=== PATIENT | female | born 1985 | race American Indian/Alaskan Native ===

== ENCOUNTER 2019-12-15 18:13 | Emergency (ER) | payer SELFPAY ==
[2019-12-15] MEDS ORDERED: SODIUM CHLORIDE 0.9% 500 ML 500 ML IV ONE (20:50)
[2019-12-15] MEDS ORDERED: ACETAMINOPHEN 500 MG TAB PO STA (20:50)
[2019-12-15 21:27] LABS: Basophils % (Auto) 0.3 % (0.0-1.8); Eosinophils % (Auto) 0.1 % (0.0-4.3); Hematocrit 29.2 % (30.3-42.9); Hemoglobin 9.6 gm/dl (10.1-14.3); Lymphocytes # (Auto) 1.8 K/mm3 (1.2-5.4); Lymphocytes % (Auto) 11.4 % (13.4-35.0); Mean Corpuscular HGB Conc 33 % (30-34); Monocytes % (Auto) 6.4 % (0.0-7.3); Platelet Count 463 K/mm3 (140-440); Red Blood Count 4.53 M/mm3 (3.65-5.03)
[2019-12-15 21:29] LABS: Alanine Aminotransferase 16 units/L (7-56); Albumin 4.8 g/dL (3.9-5); Blood Urea Nitrogen 14 mg/dL (7-17); Calcium 9.8 mg/dL (8.4-10.2); Hemolysis Index 1
[2019-12-15 21:31] LABS: BUN/Creatinine Ratio 20
[2019-12-15 21:37] LABS: INR 1.04 (0.87-1.13)
[2019-12-15 21:38] LABS: Mean Corpuscular Volume 65 fl (79-97)
[2019-12-15 21:50] LABS: Bilirubin,Urine SM (Negative); Blood,Urine LG (Negative); Color,Urine Amber (Yellow); Mucus,Urine 3+ /HPF
[2019-12-15 21:58] LABS: Ictotest,Urine Negative (Negative)
--- NOTE | 2019-12-15 22:34 | XRay Report ---
CHEST 2 VIEWS INDICATION / CLINICAL INFORMATION: MAIN. COMPARISON: None available. FINDINGS: SUPPORT DEVICES: None. HEART / MEDIASTINUM: No significant abnormality. LUNGS / PLEURA: No significant pulmonary or pleural abnormality. No pneumothorax. ADDITIONAL FINDINGS: No significant additional findings. IMPRESSION: 1. No acute findings. Signer Name: John Walker MD Signed: 12/15/2019 10:29 PM Workstation Name: [id number]
[2019-12-16 02:50] VITALS: BP 114/81
[2019-12-16] MEDS ORDERED: SODIUM CHLORIDE 0.9% 1000 ML 1,000 ML IV ONE (03:06)
[2019-12-16] MEDS ORDERED: cefTRIAXone/NS 1 GM/50 ML 1 GM/50 ML BAG IV ONE (03:06)
--- NOTE | 2019-12-16 04:21 | Emergency Department Report ---
Abscess Boil HPI - HPI Chief Complaint: Skin/Abscess/Foreign Body Stated Complaint: ANXIETY ATTACK Time Seen by Provider: 12/16/19 03:03 Duration: 3 Days Location: Upper Extremity History: Yes Pain, Yes Purulent Drainage, Yes Previous History, No Fever, No Numbness, No Foreign Body, No Insect Bite HPI: Patient 34-year-old -Citizen Of [place] female who presents for right axillary abscess for the past 3 days. . Patient advises that it ruptured while in triage. Stated moderate amount of purulent drainage. Patient does endorse history of same generally treated with p.o. antibiotics. There has been no fevers no chills there is no exacerbating or relieving factor. Home Medications: Previous Rx's Medication Instructions Recorded Last Taken Type cephALEXin [Keflex] 28 mg PO Q8HR #30 cap 12/16/19 Unknown Rx traMADoL [Ultram] 50 mg PO Q6HR PRN 7 Days #28 tablet 12/16/19 Unknown Rx Allergies/Adverse Reactions: Allergies Allergy/AdvReac Type Severity Reaction Status Date / Time No Known Allergies Allergy Unverified 12/15/19 20:48 ED Review of Systems ROS: Stated complaint: ANXIETY ATTACK Other details as noted in HPI Constitutional: denies: chills, fever Eyes: denies: eye pain, eye discharge, vision change ENT: denies: ear pain, throat pain Respiratory: denies: cough, shortness of breath, wheezing Cardiovascular: denies: chest pain, palpitations Endocrine: no symptoms reported Gastrointestinal: denies: abdominal pain, nausea, diarrhea Genitourinary: denies: urgency, dysuria, discharge Musculoskeletal: denies: back pain, joint swelling, arthralgia Skin: lesions, change in color, change in hair/nails, pruritus Neurological: headache Psychiatric: denies: anxiety, depression Hematological/Lymphatic: denies: easy bleeding, easy bruising ED Past Medical Hx - Past Medical History Previous Medical History?: Yes Hx Psychiatric Treatment: Yes (Anxiety) - Surgical History Past Surgical History?: Yes Additional Surgical History: X 2 - Social History Smoking Status: Never Smoker Substance Use Type: None - Medications Home Medications: Home Medications Medication Instructions Recorded Confirmed Last Taken Type cephALEXin [Keflex] 28 mg PO Q8HR #30 cap 12/16/19 Unknown Rx traMADoL [Ultram] 50 mg PO Q6HR PRN 7 Days #28 tablet 12/16/19 Unknown Rx ED Abscess Boil Physical Exam - Exam General: Vital signs noted. No distress. Alert and acting appropriately. Size: 2 cm Exam: Yes Surrounding Cellulites/Erythema, Yes Normal Neurologic Exam, Yes Normal Circulation, No Tenderness, No Fluctuance, No Lymphangitis, No Crepitation, No Heart Murmur Exam: right axillary ascess 1x3 cm, purulent drainage , moderte erythema, painful touch. I & D Note - I & D Note I & D Note: pt declines i&D ED Course Vital Signs 12/15/19 12/16/19 20:40 02:49 Temperature 100.2 F H 98.8 F Pulse Rate 128 H 92 H Respiratory 22 18 Rate Blood Pressure 109/83 Blood Pressure 114/81 [Left] O2 Sat by Pulse 100 99 Oximetry - Reevaluation(s) Reevaluation #1: pain is improved medications given in ed 12/16/19 04:30 Critical care attestation.: If time is entered above; I have spent that time in minutes in the direct care of this critically ill patient, excluding procedure time. ED Medical Decision Making - Lab Data Result diagrams: 12/15/19 20:57 12/15/19 20:57 abscess right axillary, plan: keflex, ultram, wound care - Medical Decision Making Right axillary abscess draining. Patient states pain is improved. Declines further I&D. Plan DC home with Keflex Ultram as needed for pain dressing changes as directed follow-up with primary care doctor. Patient verbalized agreement and understanding with same patient DC'd home in stable condition at this time. Patient is alert oriented x3 there are no symptoms of sepsis at this time ED Disposition Clinical Impression: Abscess of axilla, right Disposition: DC-01 TO HOME OR SELFCARE Is pt being admited?: No Does the pt Need Aspirin: No Condition: Stable Instructions: Abscess (ED) Prescriptions: cephALEXin [Keflex] 28 mg PO Q8HR #30 cap traMADoL [Ultram] 50 mg PO Q6HR PRN 7 Days #28 tablet PRN Reason: Pain Referrals: INDIA GARAY MD [Staff Physician] - 3-5 Days Forms: Work/School Release Form(ED) Time of Disposition: 04:37
== END 2019-12-16 04:47 | disposition home or self-care (01) ==
LOC: ED 18:13
DX: L02.411 Cutaneous abscess of right axilla (principal); F41.9 Anxiety disorder, unspecified; Z79.899 Other long term (current) drug therapy
CPT/HCPCS: 36415; 71046; 80053; 81001; 82140; 82805; 84703; 85025; 85610; 87040; 87086; 93005; 96365; 99284; J0696; J7030

== ENCOUNTER 2020-03-06 14:42 | Emergency (ER) | payer SELFPAY ==
[2020-03-06 16:21] VITALS: BP 129/72
[2020-03-06 16:55] LABS: Basophils % (Auto) 0.2 % (0.0-1.8); Eosinophils % (Auto) 0.1 % (0.0-4.3); Hematocrit 30.6 % (30.3-42.9); Hemoglobin 9.5 gm/dl (10.1-14.3); Lymphocytes % (Auto) 15.8 % (13.4-35.0); Mean Corpuscular HGB Conc 31 % (30-34); Monocytes # (Auto) 0.9 K/mm3 (0.0-0.8); Monocytes % (Auto) 7.1 % (0.0-7.3); Platelet Count 399 K/mm3 (140-440); Red Blood Count 4.65 M/mm3 (3.65-5.03)
[2020-03-06 17:02] LABS: Mean Corpuscular Volume 66 fl (79-97); Red Cell Distribution Width 21.7 % (13.2-15.2)
[2020-03-06 17:15] LABS: Alanine Aminotransferase 8 units/L (7-56); Albumin 4.5 g/dL (3.9-5); Blood Urea Nitrogen 11 mg/dL (7-17); Calcium 9.8 mg/dL (8.4-10.2); Hemolysis Index 0
[2020-03-06 17:28] LABS: Bilirubin,Urine NEG (Negative); Blood,Urine LG (Negative); Color,Urine Red (Yellow); Mucus,Urine 3+ /HPF; Protein,Urine >500 mg/dL (Negative); RBC,Urine > 182.0 /HPF (0.0-6.0)
[2020-03-06 17:33] LABS: BUN/Creatinine Ratio 22
--- NOTE | 2020-03-06 19:37 | Ultrasound Report ---
OB Ultrasound HISTORY: with bleeding cramps. TECHNIQUE: Grayscale and color imaging performed. COMPARISON: None FINDINGS: Uterus measures 10.9 x 7.6 x 7.5 cm. Both ovaries are normal size and appearance with prese rved blood flow. There is an intrauterine gestation with crown-rump length of 1.8 cm corresponding with an EGA of 8 we eks and 2 days. cardiac activity is present with a heart rate of 178 bpm. There is trace simple fluid in the cul-de-sac. Nothing acute. IMPRESSION: Single viable intrauterine gestation with nothing acute. Signer Name: Sid Dasilva MD Signed: 03/06/2020 7:33 PM Workstation Name: [id number]
--- NOTE | 2020-03-06 19:57 | Emergency Department Report ---
ED Female HPI - General Chief complaint: Abdominal Pain Stated complaint: POSS MISCARRIAGE Source: patient Mode of arrival: Ambulatory Limitations: No Limitations - History of Present Illness Initial comments: 34-year-old -[place] female presents to the emergency room stating that she started with vaginal bleeding about 1400 today. Patient reports she is on a gone through 1 pad. Her last menstrual cycle was 01/10/2020. Took a home at home and was positive. She complains of a little bit abdominal cramping. . Has not started care. MD Complaint: vaginal bleeding -: This afternoon Time: 14:00 Location: suprapubic Severity scale (0 -10): 6 Quality: cramping Consistency: intermittent Improves with: none Worsens with: none Are you Now?: Yes Last Menstrual Period: 01/10/20 EDC: 10/16/20 Associated Symptoms: vaginal bleeding, nausea/vomiting, hematuria. denies: vaginal discharge, fever/chills, dysuria - Related Data Sexually active: Yes : 3 Para: 2 Previous Rx's Medication Instructions Recorded Last Taken Type cephALEXin [Keflex] 28 mg PO Q8HR #30 cap 12/16/19 Unknown Rx traMADoL [Ultram] 50 mg PO Q6HR PRN 7 Days #28 tablet 12/16/19 Unknown Rx Doxylamine Succinate/Vit B6 1 each PO BID #14 tablet. 03/06/20 Unknown Rx [Diclegivinny Mcdonald 10-10 mg Tablet] Tran Root [Tran] 250 mg PO Q8H PRN #24 capsule 03/06/20 Unknown Rx Nitrofurantoin [place]/M-Cryst 100 mg PO Q12HR 7 Days #14 capsule 03/06/20 Unknown Rx [Macrobid CAP] Vit-Fe Fumar-FA [ 1 tab PO QDAY #90 tablet 03/06/20 Unknown Rx Vitamin] Allergies Allergy/AdvReac Type Severity Reaction Status Date / Time No Known Allergies Allergy Unverified 12/15/19 20:48 ED Review of Systems ROS: Stated complaint: POSS MISCARRIAGE Other details as noted in HPI Comment: All other systems reviewed and negative ED Past Medical Hx - Past Medical History Previous Medical History?: Yes Hx Psychiatric Treatment: Yes (Anxiety) - Surgical History Additional Surgical History: X 2 - Social History Smoking Status: Never Smoker Substance Use Type: None - Medications Home Medications: Home Medications Medication Instructions Recorded Confirmed Last Taken Type cephALEXin [Keflex] 28 mg PO Q8HR #30 cap 12/16/19 Unknown Rx traMADoL [Ultram] 50 mg PO Q6HR PRN 7 Days #28 tablet 12/16/19 Unknown Rx Doxylamine Succinate/Vit B6 1 each PO BID #14 tablet. 03/06/20 Unknown Rx [Diclegis Dr 10-10 mg Tablet] Tran Root [Tran] 250 mg PO Q8H PRN #24 capsule 03/06/20 Unknown Rx Nitrofurantoin [place]/M-Cryst 100 mg PO Q12HR 7 Days #14 capsule 03/06/20 Unknown Rx [Macrobid CAP] Vit-Fe Fumar-FA [ 1 tab PO QDAY #90 tablet 03/06/20 Unknown Rx Vitamin] ED Physical Exam - General Limitations: No Limitations General appearance: alert, in no apparent distress - Head Head exam: Present: atraumatic, normocephalic - Eye Eye exam: Present: normal appearance - ENT ENT exam: Present: mucous membranes moist - Neck Neck exam: Present: normal inspection - Respiratory Respiratory exam: Absent: accessory muscle use - Cardiovascular Cardiovascular Exam: Present: regular rate, normal rhythm. Absent: systolic murmur, diastolic murmur, rubs, gallop - GI/Abdominal GI/Abdominal exam: Present: soft. Absent: distended, tenderness - Back Exam Back exam: Present: normal inspection, full ROM - Neurological Exam Neurological exam: Present: alert, oriented X3 - Psychiatric Psychiatric exam: Present: normal affect, normal mood - Skin Skin exam: Present: warm, dry, intact, normal color. Absent: rash ED Course Vital Signs 03/06/20 16:18 Temperature 98 F Pulse Rate 93 H Respiratory 18 Rate Blood Pressure 129/72 O2 Sat by Pulse 100 Oximetry ED Medical Decision Making - Lab Data Result diagrams: 03/06/20 16:33 03/06/20 16:33 - Radiology Data Radiology results: report reviewed Ordering Physician: UDAY CORNELL Date of Service: 03/06/20 Procedure(s): US OB transvaginal Accession Number(s): [id number] cc: UDAY CORNELL OB Ultrasound HISTORY: with bleeding cramps. TECHNIQUE: Grayscale and color imaging performed. COMPARISON: None FINDINGS: Uterus measures 10.9 x 7.6 x 7.5 cm. Both ovaries are normal size and appearance with preserved blood flow. There is an intrauterine gestation with crown-rump length of 1.8 cm correspondin g with an EGA of 8 weeks and 2 days. cardiac activity is present with a heart rate of 178 bp m. There is trace simple fluid in the cul-de-sac. Nothing acute. IMPRESSION: Single viable intrauterine gestation with nothing acute. Signer Name: Sid Dasilva MD Signed: 03/06/2020 7:33 PM Workstation Name: [id number] Transcribed By: NANCY Dictated By: Sid Dasilva MD Electronically Authenticated By: Sid Dasilva MD Signed Date/Time: 03/06/201932 DD/ 29 TD/TT: - Medical Decision Making 34-year-old -[place] female presents to the emergency room stating that she started with vaginal bleeding about 1400 today. Patient reports she is on a gone through 1 pad. Her last menstrual cycle was 01/10/2020. Took a home at home and was positive. She complains of a little bit abdominal cramping. . Has not started care. Critical care attestation.: If time is entered above; I have spent that time in minutes in the direct care of this critically ill patient, excluding procedure time. ED Disposition Clinical Impression: Threatened miscarriage in early Qualifiers: Weeks of gestation: 8 weeks Qualified Code(s): Z3A.08 - 8 weeks gestation of UTI (urinary tract infection) Qualifiers: Urinary tract infection type: site unspecified Hematuria presence: with hematuria Qualified Code(s): N39.0 - Urinary tract infection, site not specified; R31.9 - Hematuria, unspecified Disposition: DC-01 TO HOME OR SELFCARE Is pt being admited?: No Does the pt Need Aspirin: No Condition: Stable Instructions: Abdominal Pain (ED), Threatened Miscarriage, [id number], and Urinary Tract Infection Additional Instructions: Ultrasound shows that you are 8 weeks and 5 days . Your urine shows that you have a urinary tract infection. You need to complete your antibiotics as prescribed. Tylenol for any pain. I recommend you to start your vi tamins and to follow-up with your [facility]. Prescriptions: Doxylamine Succinate/Vit B6 [Melisa Mcdonald 10-10 mg Tablet] 1 each PO BID #14 tablet. Tran Root [Tran] 250 mg PO Q8H PRN #24 capsule PRN Reason: Nausea And Vomiting Nitrofurantoin [place]/M-Cryst [Macrobid CAP] 100 mg PO Q12HR 7 Days #14 capsule Vit-Fe Fumar-FA [ Vitamin] 1 tab PO QDAY #90 tablet Referrals: PRIMARY CARE, [Primary Care Provider] - 3-5 Days [facility] [Provider Group] - 3-5 Days [facility] [Provider Group] - 3-5 Days [facility] [Provider Group] - 3-5 Days Forms: Work/School Release Form(ED)
== END 2020-03-06 20:43 | disposition home or self-care (01) ==
LOC: ED 14:42
DX: O20.0 Threatened abortion (principal); O23.41 Unspecified infection of urinary tract in pregnancy, first trimester; Z3A.01 Less than 8 weeks gestation of pregnancy; F41.9 Anxiety disorder, unspecified; Z79.899 Other long term (current) drug therapy
CPT/HCPCS: 36415; 76801; 76817; 80053; 81001; 84702; 85025; 86900; 86901; 87086